=== PATIENT | female | born 1990 | race African-American/Black ===

== ENCOUNTER 2019-07-26 18:03 | Emergency (ER) | payer MEDICAID ==
[~2019-07-26] VITALS: Ht 157.5 cm; Wt 59.0 kg
[2019-07-26] MEDS ORDERED: ACETAMINOPHEN 325MG TABLET PO PRN (18:45)
[2019-07-26 19:30] LABS: BASOPHILS % 1.3 % (0.0-2.0); EOSINOPHILS % 1.2 % (0.0-5.0); HEMATOCRIT. 37.1 % (36.0-48.0); HEMOGLOBIN. 12.8 g/dL (12.0-16.0); LYMPHOCYTES % 26.5 % (20.0-50.0); MEAN CORPUSCULAR HEMOGLOBIN 31.9 pg (28.0-32.0); MEAN CORPUSCULAR VOLUME 92.5 fL (81.0-99.0); MEAN PLATELET VOLUME 9.2 fl (7.4-10.4); MONOCYTES % 7.5 % (2.0-8.0); NEUTROPHILS % 63.5 % (40.0-76.0); PLATELET 288 x1000/uL (130-400); RED BLOOD CELL COUNT 4.01 mill/uL (4.2-5.4); RED CELL DISTRIBUTION WIDTH 12.1 % (11.6-14.6)
[2019-07-26 19:40] LABS: CHLORIDE 109 mEq/L (98-107)
[2019-07-26 19:50] LABS: B-HCG QUANTITATIVE < 1 mIU/mL (<3)
[2019-07-26 20:03] LABS: CLARITY URINE TURBID (CLEAR); COLOR URINE RED (YELLOW); KETONES URINE NEGATIVE (NEGATIVE); LEUKOCYTE ESTERASE URINE 3+ (NEGATIVE); NITRITE URINE NEGATIVE (NEGATIVE); OCCULT BLOOD URINE 3+ (NEGATIVE); PH URINE 7.5 (4.5-8.0); PROTEIN URINE 2+ (NEGATIVE); SPECIFIC GRAVITY URINE 1.023 (1.005-1.030)
[2019-07-26] MEDS ORDERED: METRONIDAZOLE 500MG TABLET PO ONE (22:15)
[2019-07-26] MEDS ORDERED: CEFTRIAXONE SODIUM 250 MG/VIAL IM ONE (22:15)
[2019-07-26] MEDS ORDERED: AZITHROMYCIN 500 MG TABLET PO ONE (22:15)
[2019-07-26 23:30] VITALS: BP 111/68
== END 2019-07-26 23:48 | disposition home or self-care (01) ==
LOC: ER 18:03
DX: N93.8 Other specified abnormal uterine and vaginal bleeding (principal); D25.9 Leiomyoma of uterus, unspecified; N39.0 Urinary tract infection, site not specified; A59.01 Trichomonal vulvovaginitis
CPT/HCPCS: 36415; 76830; 76856; 80053; 81003; 81025; 84702; 85025; 86850; 86900; 86901; 87086; 87591; 96372; 99284; J0696

== ENCOUNTER 2019-10-08 21:09 | Emergency (ER) | payer MEDICAID ==
[~2019-10-08] VITALS: Ht 157.5 cm; Wt 57.6 kg
[2019-10-08 23:05] LABS: BASOPHILS % 0.9 % (0.0-2.0); EOSINOPHILS % 0.1 % (0.0-5.0); HEMATOCRIT. 38.5 % (36.0-48.0); HEMOGLOBIN. 13.4 g/dL (12.0-16.0); LYMPHOCYTES % 17.6 % (20.0-50.0); MEAN CORPUSCULAR HEMOGLOBIN 32.2 pg (28.0-32.0); MEAN CORPUSCULAR VOLUME 92.7 fL (81.0-99.0); MEAN PLATELET VOLUME 8.7 fl (7.4-10.4); MONOCYTES % 10.7 % (2.0-8.0); NEUTROPHILS % 70.7 % (40.0-76.0); PLATELET 250 x1000/uL (130-400); RED BLOOD CELL COUNT 4.15 mill/uL (4.2-5.4); RED CELL DISTRIBUTION WIDTH 12.7 % (11.6-14.6)
[2019-10-08 23:16] LABS: CHLORIDE 105 mEq/L (98-107)
[2019-10-08 23:18] LABS: D-DIMER 0.47 mg/L FEU (<0.50); INR 0.9; PARTIAL THROMBOPLASTIN TIME 28.6 sec (23.4-31.0)
[2019-10-08 23:19] VITALS: BP 118/78
[2019-10-08 23:19] LABS: HCG SCREEN NEGATIVE
== END 2019-10-08 23:53 | disposition home or self-care (01) ==
LOC: ER 21:09
DX: M54.89 Other dorsalgia (principal); Z87.828 Personal history of other (healed) physical injury and trauma
CPT/HCPCS: 36415; 71045; 80053; 84484; 84703; 85025; 85379; 93005; 99285